=== PATIENT | female | born 1990 | race Caucasian/White ===

== ENCOUNTER → 2020-06-19 | Outpatient (CLI) | payer OTHER ==
[~2020-06-19] MED LIST: ACETAMINOPHEN-120 ML PO; NOHOMEMEDICATIONS; NORCO 5-325 TA1 EACH PO; NORFLEX100 MG PO; ORTHO TRI-CYCL1 EAC1 PO; PRENATAL; ZPAK PO
== END ==
LOC: ULTRA 13:38
PROVIDERS: ATTEND Nurse Practitioner
DX: N64.52 Nipple discharge (principal)

== ENCOUNTER → 2020-09-08 | Outpatient (CLI) | payer OTHER | LOC: NUC 08-30 10:03 | PROVIDERS: ATTEND Nurse Practitioner | DX: R10.11 Right upper quadrant pain (principal) ==